=== PATIENT | female | born 1970 | race Hispanic/Latino ===

== ENCOUNTER 2016-10-20 19:24 | Emergency (ER) | payer OTHER ==
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
[2016-10-20] MEDS ORDERED: Ondansetron 2 mg/mL 2 mL Inj IVPUSH PRN (19:30)
[2016-10-20] MEDS ORDERED: 0.9% Sodium Chloride 1,000 ML IV ONE (19:30)
[2016-10-20] MEDS ORDERED: HYDROmorphone 0.5 mg/0.5 mL iSecure Syringe IVPUSH PRN (19:30)
[2016-10-20 19:43] LABS: BASOPHILS % (AUTO) 0.5 % (0-3); EOSINOPHILS % (AUTO) 0.8 % (0-5); MONOCYTES % (AUTO) 4.2 % (4-12); Mean Corpuscular Volume 88.2 fL (81-100); NEUTROPHILS % (AUTO) 47.2 % (40-74); Platelet Count 309 bil/L (150-400)
[2016-10-20 19:59] LABS: INR 0.92 ratio
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
[2016-10-20 20:53] LABS: APPEARANCE,URINE CLEAR (CLEAR,HAZY); COLOR,URINE YELLOW (YELLOW); OCCULT BLOOD,URINE MODERATE (NEGATIVE); PH,URINE 6.5 (5.0-8.0); UROBILINOGEN,URINE NORMAL (NORMAL)
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
== END 2016-10-20 22:50 | disposition home or self-care (01) ==
LOC: SED 19:24
DX: S20.312A Abrasion of left front wall of thorax, initial encounter (principal); M25.562 Pain in left knee; R07.89 Other chest pain; M25.512 Pain in left shoulder; R10.32 Left lower quadrant pain; J98.2 Interstitial emphysema; V49.40XA Driver injured in collision with unspecified motor vehicles in traffic accident, initial encounter; Y93.89 Activity, other specified; Y99.8 Other external cause status; Y92.410 Unspecified street and highway as the place of occurrence of the external cause
CPT/HCPCS: 36415; 70450; 71010; 71260; 72125; 72170; 73030; 73560; 74177; 80053; 81001; 81025; 84703; 85025; 85610; 85730; 86850; 93005; 96361; 96374; 96375; 99291; G0390; G0480; J1170; J2405; J7030; Q9967